=== PATIENT | female | born 1960 | race Caucasian/White ===

== ENCOUNTER 2016-07-22 11:58 | Emergency (ER) | payer OTHER ==
[~2016-07-22] VITALS: Ht 149.9 cm; Wt 60.8 kg
[2016-07-22 13:13] VITALS: BP 108/61
== END 2016-07-22 13:50 | disposition home or self-care (01) ==
LOC: ER 12:03
DX: S60.222A Contusion of left hand, initial encounter (principal); S60.221A Contusion of right hand, initial encounter; K21.9 Gastro-esophageal reflux disease without esophagitis; V43.52XA Car driver injured in collision with other type car in traffic accident, initial encounter; Y93.89 Activity, other specified; Y99.8 Other external cause status; Y92.89 Other specified places as the place of occurrence of the external cause
CPT/HCPCS: 73130